=== PATIENT | female | born 1965 | race Caucasian/White ===

== ENCOUNTER 2019-02-06 09:12 | Day surgery (SDC) | payer BC ==
[~2019-02-06] VITALS: Ht 154.9 cm; Wt 67.1 kg
[2019-02-06 09:44] VITALS: BP 149/85
[2019-02-06 14:40] VITALS: BP 132/82
== END 2019-02-06 12:25 | disposition home or self-care (01) ==
LOC: GI 09:12 → OR 11:30 → GI 11:30
PROVIDERS: Internal Medicine Gastroenterology
PROC: 0DJD8ZZ Inspection of Lower Intestinal Tract, Via Natural or Artificial Opening Endoscopic (ICD-10-PCS; principal; 2019-02-06 09:30)
DX: Z12.11 Encounter for screening for malignant neoplasm of colon (principal)
CPT/HCPCS: 45378; J1200; J1610; J2250; J2310; J3010; J3490